=== PATIENT | female | born 1975 | race Caucasian/White ===

== ENCOUNTER → 2016-11-03 | Outpatient (CLI) | payer OTHER ==
[~2016-11-03] MED LIST: CIPROFLOXACIN500 MG PO; CLINDAMYCIN HC300 MG PO; NKHM
== END | disposition home or self-care (01) ==
LOC: RAD 11:16
DX: M54.42 Lumbago with sciatica, left side (principal)

== ENCOUNTER → 2016-11-24 | Outpatient (CLI) | payer OTHER | END | disposition home or self-care (01) | LOC: MRI 13:49 | DX: M51.27 Other intervertebral disc displacement, lumbosacral region (principal) ==